=== PATIENT | female | born 1990 | race Caucasian/White ===

== ENCOUNTER 2024-10-30 02:28 | Inpatient (IN) ==
[2024-10-30] MEDS ORDERED: LIDOCAINE 1% LOCAL 20 ML VIAL INFIL PRN (03:06)
[2024-10-30] MEDS ORDERED: OXYTOCIN 30 UNITS/NSS 30 UNITS/500 ML BAG IV PRN ×2 (03:06→10:29)
[2024-10-30] MEDS: LACTATED RINGER'S 1,000 ML IV PRN (03:15)
[2024-10-30 03:42] LABS: Hematocrit (blood only) 36.9 % (37.0-47.0); Hemoglobin 11.9 g/dl (12.0-16.0); Mean Corpuscular Hemoglobin 28.5 pg (25.0-34.0); Mean Corpuscular Volume 88.3 fL (80.0-100.0); Platelet Count 183 K/uL (130-400); RDW Standard Deviation 49.8 fL (36.4-46.3); Red Blood Count 4.18 M/uL (4.20-5.40); White Blood Count 10.22 K/ul (4.8-10.8)
[2024-10-30] MEDS ORDERED: ROPIVACAINE 0.5% PF 5 MG/ML 20 ML VIAL EPI PRN (04:28)
[2024-10-30] MEDS ORDERED: SODIUM CHLORIDE 0.9% PF INJ 10 ML VIAL EPI PRN (04:28)
[2024-10-30] MEDS ORDERED: NALOXONE HCL 0.4 MG/1 ML VIAL/CARP IV PRN (04:28)
[2024-10-30] MEDS ORDERED: diphenhydrAMINE 50 MG/ML VIAL IV PRN (04:28)
[2024-10-30] MEDS ORDERED: LIDOCAINE 2% MPF LOCAL 5 ML VIAL EPI PRN (04:28)
[2024-10-30] MEDS ORDERED: NALOXONE HCL 1 MG in SODIUM CHLORIDE 0.9% 1,000 ML IV PRN (04:28)
[2024-10-30] MEDS ORDERED: ONDANSETRON INJ 2 MG/ML 2 ML VIAL IV PRN (04:28)
[2024-10-30] MEDS ORDERED: BUPIVACAINE 0.25% PF 30 ML VIAL EPI PRN (04:28)
[2024-10-30] MEDS ORDERED: NALBUPHINE HCL INJ 10 MG/ML AMP IV PRN (04:28)
--- NOTE | 2024-10-30 04:28 | Anesthesiology Consultation ---
Date of Service October 30, 2024 Assessment & Plan ASA ASA2 Proposed Anesthesia Anesthesia Type: Labor Epidural Risk / Benefits Reviewed With: PT / POA / Parent / Guardian, Accepts Plan and Informed Consent Obtained History Height/Weight Height: 5 ft 4.96 in Weight: 68.13 kg Allergies Allergy/AdvReac Type Severity Reaction Status Date / Time No Known Drug Allergies Allergy Verified 10/26/24 12:54 Medications Home Medications Medication Instructions Recorded Confirmed Last Taken no.167-folic acid-dha 1 tab PO DAILY 02/29/24 10/30/24 10/29/24 22:00 [One-A-Day ] ondansetron HCl 4 mg tablet 4 mg PO Q6H PRN nausea and 04/15/24 10/30/24 Unknown vomiting #30 tabs cyanocobalamin (vitamin B-12) 1,000 mcg PO DAILY #30 caps 06/20/24 10/30/24 Unknown 1,000 mcg capsule cholecalciferol (vitamin D3) 10 10 mcg PO DAILY 06/24/24 10/30/24 10/29/24 22:00 mcg (400 unit) capsule Active Medications Generic Name Dose Route Start Last Admin Trade Name Freq PRN Reason Stop Dose Admin Fentanyl/Bupivacaine/Sodium Chlor 100 ml 10/30/24 04:28 10/30/24 05:08 Fentanyl 2 Mcg/Ml Bupivacaine 0.125%-Nss 100ml Bag EPI 10/31/24 04:27 100 ml PRN PRN Administration Pain R/T Labor Protocol Lactated Ringer's 1,000 mls @ 125 mls/hr 10/30/24 03:06 10/30/24 03:15 Lr IV 11/01/24 03:05 999 mls/hr .Q8H PRN Administration L&D Protocol Protocol Past Medical History Medical History History of chicken pox Anxiety Tobacco smoker, 1 pack of cigarettes or less per day H/O migraine Exercise / Class Metabolic Activity II 4-5 Yardwork/Stairs/Walk up hill Past Family History Family History Grandfather (Maternal) Prostate cancer Mother No problems noted. Father No problems noted. Denies family history of Ovarian cancer Myocardial infarction Breast cancer Colorectal cancer Past Surgical History Surgical History H/O wisdom tooth extraction S/P appendectomy Past Anesthesia History No Hx of Anesthesia Complications and No Family Hx of Anesthesia Complications History of PONV No Hx of PONV and No Hx of Motion Sickness Social History Smoking Status: Former smoker Do You Dip or Chew Tobacco: No Smoking End Date: 1 year ago Hx Alcohol Use: No ("maybe once a year") Hx Substance Use: No Review of Systems denies fever/cough/ colds/ chest pain/ SOB/ MATIAS denies MATIAS Physical Exam Vital Signs Last Vital Signs Temp 36.7 C 10/30/24 05:00 Pulse 101 H 10/30/24 05:08 Resp 18 10/30/24 05:00 BP 111/68 10/30/24 05:09 Pulse Ox 95 10/30/24 05:08 ENMT Mouth: no TMJ abnormality and no dentition abnormality Thyromental Distance: > or= 3.5 Finger Breadths Mallampati Class: II Neck neck extension not limited Respiratory normal respiratory effort; no respiratory distress Auscultation: lungs clear to auscultation bilaterally Cardiovascular Rate/Rhythm: regular rate and regular rhythm Neurologic moves all extremities Psychiatric Orientation: alert and oriented x 3 Testing Laboratory Results 10/30/24 03:26
[2024-10-30] MEDS: LIDOCAINE 2%/EPINEPHRINE 1:200,000 20 ML PF EPI STA (05:08)
[2024-10-30] MEDS: BUPIVACAINE 0.25% PF 30 ML VIAL EPI STA (05:08)
[2024-10-30] MEDS: fentANYL 2 MCG/ML BUPIVacaine 0.125%-NSS 100ML BAG EPI PRN (05:08)
--- NOTE | 2024-10-30 06:09 | History & Physical Report ---
Date of Service October 30, 2024 Assessment & Plan (1) with 39 completed weeks gestation: (2) Normal labor: Plan Patient doing well and making good progress. fetus category one. anticipate . Admission and Anticipated Discharge Date Admission Date: October 30, 2024 History of Present Illness Chief Complaint: rom and contractions Primary Care Provider: IVORY Ann Patient is a 34yowf with iup at 39 weeks who notes rom with large gush of clear fluids and onset of contractions. no vb. +fm. was 4.5cm /70 by nursing when admitted and is now comfortable with epidural and Delivery Plans AMA Weekly NST's @ 36 weeks hepatitis b non immune OB Labs: Blood Type AB Positive 04/01/24 Antibody Screen NEGATIVE 04/01/24 Hgb 11.6 g/dl (12.0-16.0) L 08/11/24 Hct 34.1 % (37.0-47.0) L 08/11/24 MCV 87.9 fL (80.0-100.0) 04/24/24 Plt Count 264 K/uL (130-400) 04/24/24 Rubella IgG Antibody Immune (Immune) 04/01/24 Treponema pallidum Ab Negative (Negative) 08/11/24 Hep Bs Antigen Negative (Negative) 04/01/24 Hepatitis C Antibody Negative (Negative) 04/01/24 HIV 1&2 Ab/P24 Ag 4thGn Negative (Negative) 04/01/24 Glucose 1 Hr 50 gm 154 mg/dl (70-130) H 05/27/24 Maternal Serum AFP 43.5 ng/mL 05/27/24 OB Optional Labs: Chlamydia trachomatis RNA Not Detected (NotDetected) 04/01/24 Neisseria gonorrhoeae RNA Not Detected (NotDetected) 04/01/24 Thyroid Stimulating Hormone (TSH) 0.688 uIu/ml (0.300-4.500) 06/03/24 Alpha Fetoprotein Triple Screen SEE NOTE 05/27/24 Labs Reviewed: cfdna-low risk--mln Horizon-negative--mln GBS negative. Allergies Allergy/AdvReac Type Severity Reaction Status Date / Time No Known Drug Allergies Allergy Verified 10/26/24 12:54 Home Medications Medication Instructions Recorded Confirmed Type no.167-folic acid-dha 1 tab PO DAILY 02/29/24 10/30/24 History [One-A-Day ] ondansetron HCl 4 mg tablet 4 mg PO Q6H PRN nausea and 04/15/24 10/30/24 Rx vomiting #30 tabs cyanocobalamin (vitamin B-12) 1,000 mcg PO DAILY #30 caps 06/20/24 10/30/24 Rx 1,000 mcg capsule cholecalciferol (vitamin D3) 10 10 mcg PO DAILY 06/24/24 10/30/24 History mcg (400 unit) capsule Patient History Medical History History of chicken pox Anxiety Tobacco smoker, 1 pack of cigarettes or less per day H/O migraine Surgical History H/O wisdom tooth extraction S/P appendectomy Family History Grandfather (Maternal) Prostate cancer Mother No problems noted. Father No problems noted. Denies family history of Ovarian cancer Myocardial infarction Breast cancer Colorectal cancer Social History Smoking Status: Former smoker Tobacco Type: Cigarettes Age Started Using Tobacco: 23; Age Quit Using Tobacco: 32; packs per day: 0.5; Smoking End Date: 1 year ago; Second Hand Exposure: Yes (mom); Do You Dip or Chew Tobacco: No; Hx Alcohol Use: No ("maybe once a year") Hx Substance Use: No Preferred Language: Welsh Line Analyst Required: No Beliefs That Will Affect Care: None marital status: Single marital status details: meka Pulido (30) [phone] Current Living Situation: Parent, Family and Significant Other Current Living Situation Comment: lives with fob, parents, sister; cat- mother changing litter current occupational status: employed 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[employer] How many Children do You have: 0 Other Information That Helps Us Care for You: No Feels Safe at Home: Yes Childhood Exposure to Second-Hand Smoke: No Diet: regular Dental Care, Regularly: No Physical Activity Frequency: Does not Exercise Seatbelt Use: always Sunscreen Use: Yes Assistive Devices: None OB History G1--present 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 Physical Exam Constitutional: WD/WN, vitals as above Gastrointestinal (Abdomen): soft, gravid, nt Psychiatric: A+Ox3, euthymic affect Genitourinary: cx--8/100/-2 arom forebag, clear toco--q2-3min efm--140s with mod variability, accels present, +scalp stim, no decels Results & Data Vital Signs (Past 12 Hours) Vital Signs Temp Pulse Resp BP Pulse Ox 10/30/24 06:03 96 10/30/24 06:03 104 H 10/30/24 06:01 102 H 10/30/24 06:01 98/60 L 10/30/24 05:58 96 10/30/24 05:58 97 H 10/30/24 05:53 96 10/30/24 05:53 108 H 10/30/24 05:48 97 10/30/24 05:48 108 H 10/30/24 05:45 96 H 10/30/24 05:45 111/67 10/30/24 05:43 96 10/30/24 05:43 110 H 10/30/24 05:38 96 10/30/24 05:38 101 H 10/30/24 05:33 96 10/30/24 05:33 97 H 10/30/24 05:31 103 H 10/30/24 05:31 114/69 10/30/24 05:28 96 10/30/24 05:28 98 H 10/30/24 05:23 96 10/30/24 05:23 111 H 10/30/24 05:18 96 10/30/24 05:18 105 H 10/30/24 05:15 114 H 10/30/24 05:15 114/54 L 10/30/24 05:13 97 10/30/24 05:13 123 H 10/30/24 05:13 109/71 10/30/24 05:09 111/68 10/30/24 05:08 95 10/30/24 05:08 101 H 10/30/24 05:07 109 H 10/30/24 05:07 118/71 10/30/24 05:05 111 H 10/30/24 05:05 115/70 10/30/24 05:03 97 10/30/24 05:03 103 H 10/30/24 05:03 112/65 10/30/24 05:01 105 H 10/30/24 05:01 123/61 10/30/24 05:00 18 10/30/24 05:00 36.7 C 18 10/30/24 04:59 109 H 10/30/24 04:59 127/59 L 10/30/24 04:58 97 10/30/24 04:58 113 H 10/30/24 04:57 118 H 10/30/24 04:57 130/81 10/30/24 04:55 115 H 10/30/24 04:55 120/80 10/30/24 04:53 97 10/30/24 04:53 108 H 10/30/24 04:48 96 10/30/24 04:48 108 H 10/30/24 04:43 97 10/30/24 04:43 108 H 10/30/24 04:38 98 10/30/24 04:38 109 H 10/30/24 03:20 115 H 125/76 10/30/24 02:47 115 H 125/76 10/30/24 02:42 18 10/30/24 02:42 36.8 C 18 Coding Level of Care Code None Diagnoses with 39 completed weeks gestation Z3A.39 Normal labor O80; Z37.9
[2024-10-30] MEDS: SODIUM CHLORIDE 0.9% PF INJ 10 ML VIAL ONE (06:50)
[2024-10-30] MEDS: LIDOCAINE 2%/EPINEPHRINE 1:200,000 20 ML PF ONE (06:50)
[2024-10-30] MEDS: fentANYL 2 MCG/ML BUPIVacaine 0.125%-NSS 100ML BAG ONE (06:50)
[2024-10-30] MEDS: BUPIVACAINE 0.25% PF 30 ML VIAL ONE (06:50)
[2024-10-30] MEDS: SODIUM CHLORIDE 0.9% PF INJ 10 ML VIAL EPI STA (06:52)
[2024-10-30] MEDS: OXYTOCIN 30 UNITS/NSS 30 UNITS/500 ML BAG IV PRN (09:34)
--- NOTE | 2024-10-30 10:27 | Delivery Summary ---
Vaginal Delivery Summary Date of Service October 30, 2024 Vaginal Delivery Summary and 3rd Degree LAC Pre-operative Diagnosis: at 39 weeks srom labor Post-operative Diagnosis: same third degree laceration Procedure: epidural third degree laceration repair QBL: 252cc Anesthesia: epidural Procedure: Patient presented in active labor with srom. Got epidural and progressed to c/c/+2. The patient pushed for one hour to deliver a viable female infant in edgar position. The nose and mouth were bulb suctioned on the perineum and a loose nuchal cord x 1 reduced., and the rest of the infant was then delivered without difficulty. The baby was vigorous. The nose and mouth were again bulb suctioned and the was placed in the maternal abdomen for drying and attention. Cord was clamped and cut at one minute of life. Cord blood and segment obtained. Placenta delivered spontaneous, intact with a three vessel cord. Cervix/sulci/rectum were intact. A third degree perineal laceration was repaired in the normal standard fashion, reapproximating the sphincter with 3 figure of eight sutures of 2-0 vicryl. Hemostasis obtained with dilute pitocin and fundal massage. Apgars were 8/10. Mother and baby doing well at the end of the delivery. [facility] Vaginal Delivery Charge Delivery Type Details: and 3rd Degree LAC
[2024-10-30] MEDS ORDERED: HYDROCORTISONE ACETATE 25 MG SUPP PR PRN (10:29)
[2024-10-30] MEDS ORDERED: ACETAMINOPHEN 325 MG TAB PO PRN (10:29)
[2024-10-30] MEDS: DIPHTHER/TETAN/PERTUS Vaccine (Tdap, Adol/Adult) 0.5mL IM ONE (11:07)
[2024-10-30] MEDS: BENZOCAINE 20% SPRY 85 APPLN/85 GM CAN EXT PRN (11:41)
[2024-10-30] MEDS: IBUPROFEN 600 MG TAB PO PRN (11:42)
--- NOTE | 2024-10-30 11:51 | Anesthesia Procedure Note ---
Date of Service October 30, 2024 Anesthesia Post Epidural Note Vital Signs Vital Signs: Temp Pulse Resp BP Pulse Ox 37.1 C 86 18 99/54 L 96 10/30/24 09:00 10/30/24 11:45 10/30/24 11:15 10/30/24 11:45 10/30/24 09:58 Notes Mental Status: alert / awake / arousable and participated in evaluation Nausea / Vomiting: adequately controlled Pain: adequately controlled Airway Patency, RR, SpO2: stable & adequate BP & HR: stable & adequate Hydration State: stable & adequate Neuraxial Anesthesia: was administered and sensory block is resolving Anesthetic Complications: no major complications apparent Epidural: Removed without complications and With tip intact
[2024-10-30] MEDS: DOCUSATE SODIUM 100 MG CAP PO SCH (21:42)
--- NOTE | 2024-10-31 05:52 | Obstetrical Progress Note ---
Date of Service October 31, 2024 Assessment & Plan (1) care following vaginal delivery: Plan: Navarro Thomas is a 34 y/o post- day 1 s/p Fells well today. Vital signs stable Continue post- care Encourage ambulation and Pain controlled with ibuprofen Hgb stable Continue patient education Discharge home tomorrow, follow up with Dr. Nunn in 6 weeks. Admission and Anticipated Discharge Date Admission Date: October 30, 2024 Anticipated date of discharge: 11/01/24 Supervising Physician Co-Signing Physician Notes Resident Physician Supervision Note: I interviewed and examined the patient. Discussed with Dr. James and agree with findings and plan as documented in the note. Any exceptions or clarifications are listed here: Doing well this am. Notes her bottom is sore, but pain meds help. Continue routine care. Documented By: Enedina Nunn MD, FACOG Subjective Navarro Thomas is a 34 y/o post- day 1 s/p Ambulation: ambulating normally Voiding: no voiding problems Passing Gas:: Yes Diet Tolerance:: regular diet Lochia:: Small Feeding Type:: bottle feeding Current Pain Level: 2/10, well-controlled with current pain regimen Resting comfortably this AM in NAD. Denies READ, CP, SOB, N/V/D, LE pain/swelling. Review of Systems Review of Systems: All systems reviewed & are unremarkable except as noted in HPI & below Physical Exam Physical Exam: General: patient resting comfortably, NAD, non-toxic in appearance, AA&O x 4, answers questions appropriately. Skin: warm, dry, intact HEENT: NC/AT, anicteric sclera, conjunctiva without injection, moist mucus membranes. Heart: +S1/S2, regular, no m/r/g Lungs: equal air entry bilaterally, no rales/rhonchi/wheezes Abd: +BS, soft, NT/ND, uterine fundus firm, nontender at umbilicus Ext: warm, no clubbing/cyanosis or edema, Ca's neg. Neuro: nonfocal, patient AA&O x 4, speech intact, no facial droop, moving all extremities on command. Constitutional: WD/WN, vitals as above Results & Data Vital Signs (Past 12 Hours) Vital Signs Temp Pulse Resp BP BP Pulse Ox O2 Del Method 10/31/24 03:50 36.7 C 85 16 89/52 L 96 Room Air 10/30/24 23:45 37.2 C 89 16 87/50 L 99 Room Air 10/30/24 20:00 36.9 C 94 H 18 100/67 97 Room Air
[2024-10-31 06:17] LABS: Hematocrit (blood only) 30.1 % (37.0-47.0); Hemoglobin 9.6 g/dl (12.0-16.0)
[2024-10-31] MEDS: PRENATAL VITAMIN 1 TAB PO SCH (07:49)
--- NOTE | 2024-11-01 05:54 | Obstetrical Progress Note ---
Date of Service November 01, 2024 Assessment & Plan (1) care following vaginal delivery: Plan: Navarro Thomas is a 34 y/o post- day 2 s/p Fells well today. Vital signs stable Continue post- care Encourage ambulation and Pain controlled with ibuprofen Hgb stable Continue patient education Discharge home today, follow up with Dr. Nunn in 6 weeks. Admission and Anticipated Discharge Date Admission Date: October 30, 2024 Anticipated date of discharge: 11/01/24 Supervising Physician Co-Signing Physician Notes Resident Physician Supervision Note: I was present with Dr. James during the history and exam. I discussed the case with the resident and agree with the findings and plan as documented in the note. Any exceptions or clarifications are listed here: [None] Documented By: Nadege Lew MD, FACOG Subjective Navarro Thomas is a 34 y/o post- day 2 s/p Today, she notes having some muscle aches. Has not needed/taken Tylenol. Ambulation: ambulating normally Voiding: no voiding problems Passing Gas:: Yes Diet Tolerance:: regular diet Lochia:: Small Feeding Type:: bottle feeding Current Pain Level: 2/10, well-controlled with current pain regimen Resting comfortably this AM in NAD. Denies READ, CP, SOB, N/V/D, LE pain/swelling. Physical Exam Physical Exam: General: patient resting comfortably, NAD, non-toxic in appearance, AA&O x 4, answers questions appropriately. Skin: warm, dry, intact HEENT: NC/AT, anicteric sclera, conjunctiva without injection, moist mucus membranes. Heart: +S1/S2, regular, no m/r/g Lungs: equal air entry bilaterally, no rales/rhonchi/wheezes Abd: +BS, soft, NT/ND, uterine fundus firm, nontender below the level of the umbilicus Ext: warm, no clubbing/cyanosis or edema, Ca's neg. Neuro: nonfocal, patient AA&O x 4, speech intact, no facial droop, moving all extremities on command. Constitutional: WD/WN, vitals as above Results & Data Vital Signs (Past 12 Hours) Vital Signs Temp Pulse Resp BP BP Pulse Ox O2 Del Method 11/01/24 00:20 36.9 C 92 H 16 91/55 L 99 Room Air 10/31/24 20:00 37.1 C 81 16 94/57 L 98 Room Air
[2024-11-01 08:27] VITALS: RESP 18; TEMP 97.9; O2SAT 98
[2024-11-01 09:32] VITALS: BP 94/57; PULSE 92
== END 2024-11-01 10:50 | disposition home or self-care (01) | DRG 768 ==
LOC: OPB 02:28 → 4S1 02:30 → 4E2 14:50